=== PATIENT | female | born 1965 | race Caucasian/White ===

== ENCOUNTER → 2018-10-08 08:01 | Outpatient (CLI) | payer OTHER, SELFPAY ==
[2018-10-08 08:24] LABS: Add Manual Diff / Slide Review NO; Basophils Absolute Auto 0 /uL (0-100); Basophils Percent Auto 0.8 % (0-2); Eosinophils Absolute Auto 200 /uL (0-450); Eosinophils Percent Auto 3.2 % (2-4); Hematocrit 37.9 % (36-46); Hemoglobin 12.8 g/dL (12.0-16.0); Lymphocytes Absolute Auto 1600 /uL (1100-4500); Lymphocytes Percent Auto 33.3 % (25-40); Mean Corpuscular HGB Conc 33.7 % (30-36); Mean Corpuscular Hemoglobin 30.6 PG (26-34); Mean Corpuscular Volume 90.8 fL (80-100); Monocytes Absolute Auto 300 /uL (0-900); Monocytes Percent Auto 6.6 % (3-14); Neutrophils Absolute Auto 2700 /uL (1500-7000); Neutrophils Percent Auto 56.1 % (50-75); Platelet Count 307 X10^3/uL (150-400); Red Blood Cell Count 4.17 X10^6/uL (4.0-5.2); Red Cell Distribution Width 12.8 % (11.6-14.8); White Blood Cell Count 4.7 X10^3/uL (4.5-11.0)
[2018-10-08 08:58] LABS: Alanine Aminotransferase 26 IU/L (9-52); Albumin 3.9 g/dL (3.5-5.0); Albumin Globulin Ratio 1.6 (1.0-2.8); Alkaline Phosphatase 71 U/L (38-126); Aspartate Aminotransferase 21 IU/L (14-36); BUN Creatinine Ratio 28.6 (6-22); Bilirubin Total 0.6 mg/dL (0.2-1.3); Blood Urea Nitrogen 20 mg/dL (7-17); Calcium 9.1 mg/dL (8.4-10.2); Carbon Dioxide 27 mmol/L (22-32); Chloride 107 mmol/L (98-107); Cholesterol 187 mg/dL (140-199); Estimated Glomerular Filt Rate > 60.0 mL/min (>60); Globulin 2.4 g/dL (1.7-4.1); Glucose 95 mg/dL (70-100); HDL Cholesterol 56 mg/dL (40-60); HEMOLYSIS < 15 (0-50); LDL Cholesterol Calculated 122 mg/dL (<100); Magnesium 1.9 mg/dL (1.6-2.3); Sodium 142 mmol/L (137-145); Total Protein 6.3 g/dL (6.3-8.2); Triglycerides 46 mg/dL (35-150)
[2018-10-08 09:16] LABS: Vitamin D 25 Hydroxy (D3) 24.7 ng/mL (30.0-100.0)
[2018-10-08 09:27] LABS: Thyroid Stimulating Hormone 0.88 uIU/mL (0.47-4.68)
[2018-10-08 09:46] LABS: Vitamin B12 234 pg/mL (239-931)
== END ==
LOC: LAB 08:03
PROVIDERS: PCP Nurse Practitioner Family; Visit Provider Nurse Practitioner Family
DX: I10 Essential (primary) hypertension (principal); Z94.84 Stem cells transplant status; Z98.84 Bariatric surgery status
CPT/HCPCS: 36415; 80053; 80061; 82306; 82607; 83735; 84443; 85025

== ENCOUNTER 2024-05-07 09:36 | Emergency (ER) | payer OTHER, SELFPAY ==
[2024-05-07 09:50] VITALS: BP 125/63; PULSE 52; RESP 16; TEMP 36.2; O2SAT 96
--- NOTE | 2024-05-07 11:10 | ED.FALL ---
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 This occurred at approximately 9:15 a.m. this morning, she denied any precipitating events, no dizziness or lightheadedness, she states it was slippery due to the icy stairs. There were 12 stairs in total and she fell down 8 of them. She did strike her head impacting the left side, denying any loss of consciousness, she also reports scraping her left gonzalez and possibly rolling her left ankle. She also points out her left dorsal hand and pinky where she some road rash?. Patient believes her tetanus is up-to-date, all of her care is at [facility] and unavailable in our system. She takes no blood thinners, currently she denies any headache, vision changes, any neck pain, any issues with her teeth. She is right-handed dominant. She reports no wrist pain on the left, just the abrasion, she states her ring is loose and no issues on the middle finger. She reports left lateral ankle pain she is unsure which way it may have rolled but it hurts to walk on it. She is denying any prior injuries or fractures. No nausea, vomiting, chest wall pain, back pain, hip pain, any issues on the right side. All other systems are reviewed and are negative. Related Data Allergies Allergy/AdvReac Type Severity Reaction Status Date / Time Penicillins Allergy Verified 05/07/24 09:56 Review of Systems <Evelyn Jacobson PA-C - Last Filed: 05/07/24 14:30> Review of Systems Narrative: All other systems reviewed and are negative. Patient History <Evelyn Jacobson PA-C - Last Filed: 05/07/24 14:30> Social History Smoking Status: Never smoker Smoking Status: Never smoker Exam <Evelyn Jacobson PA-C - Last Filed: 05/07/24 14:30> Initial Vital Signs Initial Vital Signs: Vital Signs Temperature 97.2 F L 05/07/24 09:50 Pulse Rate 52 L 05/07/24 09:50 Respiratory Rate 16 05/07/24 09:50 Blood Pressure 125/63 05/07/24 09:50 Pulse Oximetry 96 05/07/24 09:50 Oxygen Delivery Method Room Air 05/07/24 09:50 Reviewed and are normal. Const General: comfortable, well developed and No acute distress Other: Smiling, seated in a wheelchair, no distress, pleasantly conversing. HENMT Head: abrasion, No Higginbotham's sign, contusion, hematoma, laceration, No palpable skull fracture, No raccoon eyes, No temporal artery tenderness and periorbital ecchymosis Ears: hearing grossly normal bilaterally and external ears normal Nose: external nose normal, nares normal, nasal mucous membranes and turbinates normal, septum normal and No epistaxis Face and sinus: sinuses nontender, abrasion, no crepitus, ecchymosis, no erythema, no lacerations and no maxillary instability Mouth: oral mucosae normal, lip normal, tongue normal and oropharynx normal Teeth and gingiva: dentition normal and gingiva normal Throat: posterior oropharynx normal HENMS Other: Left periorbital hematoma mild tenderness, no guarding, superficial abrasion, small scalp laceration, centrally located approximately 2cm. Well-approximated but full-thickness, no deeper structures. No active bleeding. Eyes General: Yes appearance normal, both eyes and all related structures Visual Limon: normal visual limon by confrontation Alignment and Position: alignment normal and position normal Periorbital: periorbital findings abnormal (Left brow ridge swelling and hematoma) Eyelids: eyelids normal Conjunctivae: conjunctivae normal Sclera: sclerae normal Pupils: PERRL EOM: EOM intact bilaterally Neck Neck: normal visual inspection, full ROM, trachea midline and supple Other: No focal bony midline tenderness. No step-off. Chest Chest: normal inspection of the chest Resp Effort & Inspection: normal respiratory effort Auscultation: clear to auscultation bilaterally Cardio Rate: regular rate Rhythm: regular rhythm GI Inspection: normal to inspection, no abdominal wall ecchymosis and no edema Palpation: soft and no hepatosplenomegaly Back/Spine/Pelvis Back: normal to inspection and No back tenderness Neuro General: patient alert, patient awake and patient oriented x3 Cranial Nerves: CN's II-XI intact bilaterally Cognition: normal cognition Speech: speech normal Extrem Left upper extremity: full ROM, normal capillary refill and hand (Abrasion dorsal ulnar hand, dorsal pinky, nails intact); no cyanosis, no edema and joint enlargement noted Left lower extremity: full ROM, normal capillary refill and lower leg (Distal 3rd anterior abrasion and contusion measuring 3 in in diameter) Other: Left lateral ankle malleolar tenderness, skin intact, ROM intact but painful with inversion, anterior drawer is negative. Normal DP and PT pulses. <Kathy Solares DO - Last Filed: 05/07/24 18:38> Initial Vital Signs Initial Vital Signs: Vital Signs Temperature 97.2 F L 05/07/24 09:50 Pulse Rate 52 L 05/07/24 09:50 Respiratory Rate 16 05/07/24 09:50 Blood Pressure 125/63 05/07/24 09:50 Pulse Oximetry 96 05/07/24 09:50 Oxygen Delivery Method Room Air 05/07/24 09:50 Procedures <Evelyn Jacobson PA-C - Last Filed: 05/07/24 14:30> Laceration Repair Laceration 1: Time of procedure: 13:05 Site: scalp Size (cm): 2 Depth: simple, single layer Local Anesthetic: lidocaine 1% and with epi Amount of anesthesia used (mL): 2 Pre-repair: wound explored, irrigated extensively and deep structures intact Skin layer closed with: blade (4 placed ) Technique: simple, interrupted Scores <Evelyn Jacobson PA-C - Last Filed: 05/07/24 14:30> Nexus Score for C-Spine Citation:: NEXUS criteria, low risk, no neck pain, no precipitating events, no LOC, no ETOH Course <KRUNAL Boogie Last Filed: 05/07/24 14:30> Orders Ordered: ED Orders 05/07/24 12:03 CT facial bones wo con Stat CT head/brain wo con Stat XR ankle LT min 3V Stat XR tibia fibula LT 2V Stat Discontinued Medications Bacitracin (Bacitracin Oint 0.9 Gm Pckt) 3 applic TOP NOW ONE Stop: 05/07/24 13:09 Last Admin: 05/07/24 13:13 Dose: 3 applic Documented By: SILVER Lidocaine/Epinephrine (Lidocaine 1% W/Epi 20ml) 20 ml INJ INTRA-OP ONE Stop: 05/07/24 13:04 Last Admin: 05/07/24 13:26 Dose: 20 ml Documented By: SILVER Vital Signs Vital signs: Vital Signs - 8 hr 05/07/24 14:50 Temperature 97.8 F Pulse Rate 72 Respiratory Rate 16 Blood Pressure 136/84 Pulse Oximetry 98 Oxygen Delivery Method Room Air <Kathy Solares DO - Last Filed: 05/07/24 18:38> Orders Ordered: ED Orders 05/07/24 12:03 CT facial bones wo con Stat CT head/brain wo con Stat XR ankle LT min 3V Stat XR tibia fibula LT 2V Stat Discontinued Medications Bacitracin (Bacitracin Oint 0.9 Gm Pckt) 3 applic TOP NOW ONE Stop: 05/07/24 13:09 Last Admin: 05/07/24 13:13 Dose: 3 applic Documented By: SILVER Lidocaine/Epinephrine (Lidocaine 1% W/Epi 20ml) 20 ml INJ INTRA-OP ONE Stop: 05/07/24 13:04 Last Admin: 05/07/24 13:26 Dose: 20 ml Documented By: SILVER Vital Signs Vital signs: Vital Signs - 8 hr 05/07/24 14:50 Temperature 97.8 F Pulse Rate 72 Respiratory Rate 16 Blood Pressure 136/84 Pulse Oximetry 98 Oxygen Delivery Method Room Air MDM - Fall <Evelyn Jacobson PA-C - Last Filed: 05/07/24 14:30> Imaging Data CT scan - head: My Impression: Deferred to radiologist's interpretation below. Radiologist's Impression: PROCEDURE: CT HEAD/BRAIN WO CON INDICATIONS: Fall, facial trauma, no LOC TECHNIQUE: Noncontrast 4.5 mm thick angled axial sections acquired from the foramen magnum to the vertex, with coronal and sagittal reformats. For radiation dose reduction, the following was used: automated exposure control, adjustment of mA and/or kV according to patient size. COMPARISON: None. FINDINGS: Image quality: Diagnostic. CSF spaces: Basal cisterns are patent. No extra-axial fluid collections. Ventricles are normal in size and shape. Brain: No midline shift. No intracranial masses or hemorrhage. Ivory-white matter interface is normal. Skull and face: Calvarium and visualized facial bones are intact, without suspicious lesions. Prominent left frontal scalp hematoma. Sinuses: Visualized sinuses and mastoids are clear. IMPRESSION: 1. No acute intracranial process. 2. Left frontal scalp hematoma. Dictated by: So Bates M.D. on 05/07/2024 at 12:49 Approved by: So Bates M.D. on 05/07/2024 at 12:49 CT scan - face: My Impression: Deferred to radiologist's interpretation below. Radiologist's Impression: PROCEDURE: CT FACIAL BONES WO CON INDICATIONS: Fall, left brow swelling, scalp lac TECHNIQUE: Noncontrast 2.5 mm thick axial images acquired from the mandible through the frontal sinuses, with coronal and sagittal reformatting. For radiation dose reduction, the following was used: automated exposure control, adjustment of mA and/or kV according to patient size. COMPARISON: [facility], CT, CT HEAD/BRAIN WO CON, 05/07/2024, 12:22. FINDINGS: Image quality: Excellent. Bones and teeth: Orbital lima are intact. Sinus lima show no fracture or deformity. Nasal bones and septum are intact. Visualized portions of the mandible demonstrate no fractures or subluxation. Zygomatic arches are intact. Pterygoid plates are intact. Visualized portions of the skull base and auditory canals are intact. Sinuses: Paranasal sinuses are aerated, without fluid levels, mucosal thickening, or mucoceles. Mastoid air cells are aerated. Soft tissues: Prominent left frontal scalp hematoma. Vascular: Visualized vascular structures appear normal in the absence of contrast. Bony vascular foramina and canals are intact. IMPRESSION: Prominent left frontal scalp hematoma. No visualized underlying fracture. Dictated by: So Bates M.D. on 05/07/2024 at 12:46 Approved by: So Bates M.D. on 05/07/2024 at 12:47 Extremity x-ray #1: My Impression: No fracture identified, deferred to radiologist's interpretation below of the tibia fibula. Radiologist's Impression: PROCEDURE: XR TIBIA FIBULA LT 2V INDICATIONS: Fall down stairs, gonzalez swelling and lac TECHNIQUE: 2 views of the tibia and fibula were acquired. COMPARISON: None. FINDINGS: Bones: No upper leg fractures or dislocations. No suspicious bony lesions. Soft tissues: No suspicious soft tissue calcifications or masses. IMPRESSION: No acute bony abnormality. Please see dedicated ankle series for further discussion. Dictated by: Chavez Brown M.D. on 05/07/2024 at 12:42 Approved by: Chavez Brown M.D. on 05/07/2024 at 12:42 Extremity x-ray #2: Radiologist's Impression: PROCEDURE: XR ANKLE LT MIN 3V INDICATIONS: Fall down stairs, lateral ankle pain, gonzalez lac TECHNIQUE: 3 views of the ankle were acquired. COMPARISON: None. FINDINGS: Bones: Minimally displaced fracture of the distal fibula, below the syndesmosis. No additional malleolar fractures. Plantar and dorsal calcaneal enthesophytes. Soft tissues: Large tibiotalar joint effusion. Achilles tendon appears normal. Ankle joint swelling. IMPRESSION: Lawson type a fracture of the lateral malleolus, without unstable fracture features. Dictated by: Chavez Brown M.D. on 05/07/2024 at 12:41 Approved by: Chavez Brown M.D. on 05/07/2024 at 12:42 MDM Narrative Medical decision making narrative: 58-year-old female mechanical fall with no precipitating events, no blood thinners, icy stairwell likely the cause losing her footing. She sustained a blow to her head with no loss of consciousness, left brow ridge swelling, small laceration to the scalp with no active bleeding, abrasions to her left anterior gonzalez left dorsal hand left pinky, contusions to the gonzalez. Extensive imaging performed, wounds were cleansed and dressed, tetanus was up-to-date per the patient. CTs were negative for any acute findings except for the scalp hematoma as noted over the left brow, her laceration of the scalp was repaired with blade, well-tolerated, there was a small fracture of the lateral malleolus distal fibula characterized as a Lawson fracture, she is placed in a walking boot with this and crutches with training. All of her L and I paperwork was completed with limited work capabilities. She will be off this weekend which will allow her to recuperate, I have referred her to Occupational Health and case there is any new injuries that arise and also as she will need follow up for her ankle fracture and likely associated sprain. We discussed wound care at length, soap and water cleanse, have blade removed in about 5-7 days, she is more than welcome to return here. Red flag warning signs reviewed in detail, recommend acetaminophen for pain as needed, ice pack was also given that she can reuse. Discharge Plan Departure Patient Disposition: Home Clinical Impression: Fall (on) (from) other stairs and steps, initial encounter, Hematoma of occipital region of scalp, Abrasion, leg w/o infection Laceration of scalp Qualifiers: Encounter type: initial encounter Qualified Code(s): S01.01XA - Laceration without foreign body of scalp, initial encounter Fracture of distal end of fibula Qualifiers: Encounter type: initial encounter Fracture type: closed Fracture morphology: other fracture Laterality: left Qualified Code(s): S82.832A - Other fracture of upper and lower end of left fibula, initial encounter for closed fracture Abrasion hand Qualifiers: Encounter type: initial encounter Laterality: left Qualified Code(s): S60.512A - Abrasion of left hand, initial encounter Contusion of left lower leg Qualifiers: Encounter type: initial encounter Qualified Code(s): S80.12XA - Contusion of left lower leg, initial encounter Instructions: DI for Ankle Fracture, DI for Laceration Repair -- Blade, DI for Contusion, How to Prevent Falls Activity Restrictions/Additional Instructions: I have completed your L and I paperwork, I have placed you on limitations if your employer is able to accommodate, regarding your ankle fracture, wear the boot at all times, including bedtime, you may remove it for showering but please use a shower chair for safety, elevate as much as possible and of course ice, regarding your wounds wound care with soap and water, you may apply topical bacitracin, your scalp laceration was repaired with 4 blade and those should come out in about 5-7 days, I have placed referrals to Orthopedics as well as Occupational Medicine [facility] does have some other folks as well that you certainly may see it was too you where you would like to go, ice pack for your hematoma over your left brow, do not hesitate to seek medical attention if you develop any new symptoms, or any new worrisome symptoms such as vision changes, headache, nausea, vomiting, issues with balance or any other concerns. Acetaminophen or ibuprofen as needed for pain if you can tolerate nonsteroidal anti-inflammatories remember to take them with food. Monitor for any signs of infection such as increased redness, swelling, pain, heat to any of the areas or drainage. I anticipate he will be sore for the next couple of days so keep her activity light. Referrals: Linda Bush MD [Non-Staff] - Melody Quintero PA-C [Primary Care Provider] - Deanna Colvin MD [Physician] - (Left distal fibula (closed fx) Lawson type. 58 yo F, s/p fall (L&I)) Stand Alone Forms: Patient Portal/API/Survey ED Sign-out <Kathy Solares DO - Last Filed: 05/07/24 18:38> Cosign ED Attending Cosignature Attestation: I was immediately available in the department for consultation.
--- NOTE | 2024-05-07 12:03 | DI.RAD.S_ITS ---
PROCEDURE: XR TIBIA FIBULA LT 2V INDICATIONS: Fall down stairs, gonzalez swelling and lac TECHNIQUE: 2 views of the tibia and fibula were acquired. COMPARISON: None. FINDINGS: Bones: No upper leg fractures or dislocations. No suspicious bony lesions. Soft tissues: No suspicious soft tissue calcifications or masses. IMPRESSION: No acute bony abnormality. Please see dedicated ankle series for further discussion. Dictated by: Chavez Brown M.D. on 05/07/2024 at 12:42 Approved by: Chavez Brown M.D. on 05/07/2024 at 12:42
--- NOTE | 2024-05-07 12:03 | DI.CT.S_ITS ---
PROCEDURE: CT FACIAL BONES WO CON INDICATIONS: Fall, left brow swelling, scalp lac TECHNIQUE: Noncontrast 2.5 mm thick axial images acquired from the mandible through the frontal sinuses, with coronal and sagittal reformatting. For radiation dose reduction, the following was used: automated exposure control, adjustment of mA and/or kV according to patient size. COMPARISON: [facility], CT, CT HEAD/BRAIN WO CON, 05/07/2024, 12:22. FINDINGS: Image quality: Excellent. Bones and teeth: Orbital lima are intact. Sinus lima show no fracture or deformity. Nasal bones and septum are intact. Visualized portions of the mandible demonstrate no fractures or subluxation. Zygomatic arches are intact. Pterygoid plates are intact. Visualized portions of the skull base and auditory canals are intact. Sinuses: Paranasal sinuses are aerated, without fluid levels, mucosal thickening, or mucoceles. Mastoid air cells are aerated. Soft tissues: Prominent left frontal scalp hematoma. Vascular: Visualized vascular structures appear normal in the absence of contrast. Bony vascular foramina and canals are intact. IMPRESSION: Prominent left frontal scalp hematoma. No visualized underlying fracture. Dictated by: So Bates M.D. on 05/07/2024 at 12:46 Approved by: So Bates M.D. on 05/07/2024 at 12:47
--- NOTE | 2024-05-07 12:03 | DI.CT.S_ITS ---
PROCEDURE: CT HEAD/BRAIN WO CON INDICATIONS: Fall, facial trauma, no LOC TECHNIQUE: Noncontrast 4.5 mm thick angled axial sections acquired from the foramen magnum to the vertex, with coronal and sagittal reformats. For radiation dose reduction, the following was used: automated exposure control, adjustment of mA and/or kV according to patient size. COMPARISON: None. FINDINGS: Image quality: Diagnostic. CSF spaces: Basal cisterns are patent. No extra-axial fluid collections. Ventricles are normal in size and shape. Brain: No midline shift. No intracranial masses or hemorrhage. Ivory-white matter interface is normal. Skull and face: Calvarium and visualized facial bones are intact, without suspicious lesions. Prominent left frontal scalp hematoma. Sinuses: Visualized sinuses and mastoids are clear. IMPRESSION: 1. No acute intracranial process. 2. Left frontal scalp hematoma. Dictated by: So Bates M.D. on 05/07/2024 at 12:49 Approved by: So Bates M.D. on 05/07/2024 at 12:49
--- NOTE | 2024-05-07 12:03 | DI.RAD.S_ITS ---
PROCEDURE: XR ANKLE LT MIN 3V INDICATIONS: Fall down stairs, lateral ankle pain, gonzalez lac TECHNIQUE: 3 views of the ankle were acquired. COMPARISON: None. FINDINGS: Bones: Minimally displaced fracture of the distal fibula, below the syndesmosis. No additional malleolar fractures. Plantar and dorsal calcaneal enthesophytes. Soft tissues: Large tibiotalar joint effusion. Achilles tendon appears normal. Ankle joint swelling. IMPRESSION: Lawson type a fracture of the lateral malleolus, without unstable fracture features. Dictated by: Chavez Brown M.D. on 05/07/2024 at 12:41 Approved by: Chavez Brown M.D. on 05/07/2024 at 12:42
[2024-05-07] MEDS: BACITRACIN OINT 0.9 GM PCKT 3 APPLIC TOP (13:13)
[2024-05-07] MEDS: LIDOCAINE 1% W/EPI 20ML 20 ML INJ (13:26)
--- NOTE | 2024-05-07 13:56 | PC.NURSE ---
pt refused crutches
[2024-05-07 14:50] VITALS: BP 136/84; PULSE 72; RESP 16; TEMP 36.6; O2SAT 98
== END 2024-05-07 14:51 | disposition home or self-care (01) ==
PROVIDERS: Emergency Provider Physician Assistant Medical; PCP Physician Assistant
DX: S82.62XA Displaced fracture of lateral malleolus of left fibula, initial encounter for closed fracture (principal); S01.01XA Laceration without foreign body of scalp, initial encounter; S60.512A Abrasion of left hand, initial encounter; W00.1XXA Fall from stairs and steps due to ice and snow, initial encounter; Y92.239 Unspecified place in hospital as the place of occurrence of the external cause; Y99.0 Civilian activity done for income or pay
CPT/HCPCS: 12001; 70450; 70486; 73590; 73610; 99282; 99284